=== PATIENT | male | born 1975 | race Asian ===

== ENCOUNTER → 2024-08-10 | Outpatient (BNVA) | payer MEDICAID, SELFPAY | END | disposition home or self-care (01) | PROVIDERS: PCP Nurse Practitioner Family; Referring Provider Nurse Practitioner Family; Visit Provider Nurse Practitioner Family | DX: K08.89 Other specified disorders of teeth and supporting structures (principal); Z12.11 Encounter for screening for malignant neoplasm of colon; Z76.89 Persons encountering health services in other specified circumstances; Z13.220 Encounter for screening for lipoid disorders | CPT/HCPCS: 99213 ==

== ENCOUNTER → 2024-08-17 | Outpatient (BNVA) | payer MEDICAID, SELFPAY | END | disposition home or self-care (01) | PROVIDERS: PCP Nurse Practitioner Family; Referring Provider Nurse Practitioner Family; Visit Provider Nurse Practitioner Family | DX: Z00.01 Encounter for general adult medical examination with abnormal findings (principal); M25.572 Pain in left ankle and joints of left foot; Z13.220 Encounter for screening for lipoid disorders; Z12.11 Encounter for screening for malignant neoplasm of colon; Z11.3 Encounter for screening for infections with a predominantly sexual mode of transmission; Z13.1 Encounter for screening for diabetes mellitus; K08.89 Other specified disorders of teeth and supporting structures; E66.3 Overweight; Z68.29 Body mass index [BMI] 29.0-29.9, adult | CPT/HCPCS: 93005; 99215 ==

== ENCOUNTER → 2024-08-31 | Outpatient (BNVA) | payer MEDICAID, SELFPAY | END | disposition home or self-care (01) | PROVIDERS: PCP Nurse Practitioner Family; Referring Provider Nurse Practitioner Family; Visit Provider Nurse Practitioner Family | DX: Z71.2 Person consulting for explanation of examination or test findings (principal); E78.5 Hyperlipidemia, unspecified; R73.03 Prediabetes ==

== ENCOUNTER 2024-09-15 08:31 | Emergency (ER) | payer MEDICAID, SELFPAY ==
[2024-09-15 08:47] VITALS: PULSE 94; RESP 20; O2SAT 100
[2024-09-15 09:08] VITALS: BP 127/66; PULSE 83; RESP 16; TEMP 36.5; O2SAT 100; BMI 27.0
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
[2024-09-15] MEDS: DIAZEPAM 5 MG TABLET 10 MG PO (09:18)
[2024-09-15] MEDS: HYDROcodone/APAP 5/325 TABLET 1 TAB PO (09:18)
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
[2024-09-15 11:54] LABS: Basophils % (Auto) 0 % (0-2.5); Eosinophils # (Auto) 0.1 Thou/mm3 (0.0-0.5); Eosinophils % (Auto) 1 % (0-10); Hematocrit 42.4 % (41.0-53.0); Hemoglobin 14.2 g/dL (13.5-16.0); Immature Granulocytes % (Auto) 1 % (0-0); Immature Granulocytes Auto 0.08 Thou/mm3 (0.00-0.00); Lymphocytes % (Auto) 8 % (10-50); Mean Corpuscular HGB Conc 33.5 g/dl (31.0-37.0); Mean Corpuscular Hemoglobin 31.5 pg (25.0-35.0); Mean Corpuscular Volume 94 fL (80-100); Monocytes # (Auto) 0.7 Thou/mm3 (0.0-0.8); Monocytes % (Auto) 5 % (0-12); Neutrophils # (Auto) 10.4 Thou/mm3 (1.8-7.7); Neutrophils % (Auto) 85 % (37-80); Nucleated Red Blood Cell % 0 /100 WBC (0); Platelet Count 258 Thou/mm3 (140-440); RDW Standard Deviation 40.9 fL (35.1-43.9); Red Blood Count 4.51 Miln/mm3 (4.50-5.90); White Blood Count 12.2 Thou/mm3 (3.8-10.6)
[2024-09-15 12:22] LABS: Partial Thromboplastin Time 26.3 Seconds (22.0-36.0)
[2024-09-15 12:25] LABS: Alanine Aminotransferase 24 U/L (10-49); Albumin, Serum 4.2 gm/dL (3.5-5.0); Albumin/Globulin Ratio 1.3 (1.2-2.2); Alkaline Phosphatase 60 U/L (46-116); Anion Gap 8 (7-16); Aspartate Amino Transferase 44 U/L (0-34); BUN/Creatinine Ratio 12 Ratio (12-20); Bilirubin,Total 0.8 mg/dL (0.3-1.2); Blood Urea Nitrogen 12 mg/dL (9-23); Calcium 9.3 mg/dL (8.3-10.6); Calcium (Corrected) 9.3 mg/dL (8.5-10.1); Carbon Dioxide 26.5 mMol/L (20.0-31.0); Chloride 104 mMol/L (98-107); Estimated Creatinine Clearance 85.5 mL/min (>60); Globulin 3.2 gm/dL (2.3-3.5); Glucose 93 mg/dL (74-106); Osmolality,Calculated 275 (275-295); Potassium 5.1 mMol/L (3.4-5.1); Sodium 138 mMol/L (136-145); Total Protein 7.4 gm/dL (5.7-8.2); eGFR > 60 See Note
[2024-09-15 12:56] VITALS: BP 123/75; PULSE 88; RESP 16; TEMP 36.5; O2SAT 100
--- NOTE | 2024-09-15 14:16 | PC.NURSE ---
JAQUELIN DECLINED THE PATIENT TRANSFER NURSES STATES THEY DONT HAVE THE SERVICES AVAILABLE
--- NOTE | 2024-09-15 14:24 | PC.NURSE ---
PACKET WAS FAXED TO [facility], TALKED TO CHIDI REGARDING THE TRANSFER SHE STATES SHE HAS 6 OTHER CALLS IN FRONT OF ME AND HANG UP THE PHONE
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
[2024-09-15 15:55] VITALS: BP 117/57; PULSE 87; RESP 16; TEMP 36.9; O2SAT 98
--- NOTE | 2024-09-15 16:08 | PC.NURSE ---
[facility] CALL[facility] TO REQUEST [facility]PORT, PROVIDER LOU GAVE REPORT TO TRANSFER NURSE, THE DOCTORS AT [facility] ARE REVIEWING THE CASE
--- NOTE | 2024-09-15 17:02 | PC.NURSE ---
-PT IS ACCEPTED TO [facility] IN [place] BY DR. GOMEZ. THIS IS A ER:ER TRANSFER AND NUMBER FOR REPORT IS [phone]. IVONNE WAS THE FACILITY REP I SPOKE WITH FOR ACCEPTING INFORMATION.
--- NOTE | 2024-09-15 17:20 | PC.CC ---
ASW arranged transportation from [facility]. Transportation was arranged with [facility] for 2100.
[2024-09-15 18:23] VITALS: BP 110/67; PULSE 80; RESP 16; TEMP 37.3; O2SAT 97
--- NOTE | 2024-09-15 19:54 | PC.NURSE ---
CALL [facility] AND SPOKE TO SINAN PARKER TO WHOM I GAVE REPORT TO.
[2024-09-15 19:55] VITALS: BP 136/77; PULSE 77; RESP 16; TEMP 36.7; O2SAT 99
== END 2024-09-15 19:57 | disposition short-term general hospital (02) ==
PROVIDERS: Nurse Practitioner Family; Emergency Provider Emergency Medicine
DX: S32.041A Stable burst fracture of fourth lumbar vertebra, initial encounter for closed fracture (principal); V47.6XXA Car passenger injured in collision with fixed or stationary object in traffic accident, initial encounter; Y92.410 Unspecified street and highway as the place of occurrence of the external cause
CPT/HCPCS: 36415; 71250; 72131; 74176; 80053; 81001; 85025; 85730; 99285; A9270

== ENCOUNTER → 2024-10-26 | Outpatient (BNVA) | payer MEDICAID, SELFPAY | END | disposition home or self-care (01) | PROVIDERS: PCP Nurse Practitioner Family; Referring Provider Nurse Practitioner Family; Visit Provider Nurse Practitioner Family | DX: S32.001D Stable burst fracture of unspecified lumbar vertebra, subsequent encounter for fracture with routine healing (principal); V89.2XXD Person injured in unspecified motor-vehicle accident, traffic, subsequent encounter | CPT/HCPCS: 99214 ==

== ENCOUNTER → 2024-11-16 | Outpatient (BNVA) | payer MEDICAID, SELFPAY | END | disposition home or self-care (01) | PROVIDERS: PCP Nurse Practitioner Family; Referring Provider Nurse Practitioner Family; Visit Provider Nurse Practitioner Family | DX: S32.001D Stable burst fracture of unspecified lumbar vertebra, subsequent encounter for fracture with routine healing (principal); R73.03 Prediabetes; E78.5 Hyperlipidemia, unspecified; Z01.83 Encounter for blood typing | CPT/HCPCS: 99215 ==

== ENCOUNTER → 2024-12-07 | Outpatient (BNVA) | payer MEDICAID, SELFPAY | END | disposition home or self-care (01) | PROVIDERS: PCP Nurse Practitioner Family; Referring Provider Nurse Practitioner Family; Visit Provider Nurse Practitioner Family | DX: Z71.2 Person consulting for explanation of examination or test findings (principal); E78.5 Hyperlipidemia, unspecified; Z23 Encounter for immunization | CPT/HCPCS: 90471; 90472; 90677; 90715; 99213; J90677 ==

== ENCOUNTER 2024-12-15 09:56 | Emergency (ER) | payer MEDICAID, SELFPAY ==
[2024-12-15 10:06] VITALS: BP 115/77; PULSE 85; RESP 18; TEMP 36.7; O2SAT 98; BMI 23.7
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
[2024-12-15] MEDS: IBUPROFEN TAB 400 MG TABLET 800 MG PO (10:26)
[2024-12-15] MEDS: CYCLObenzaPRINE 5 MG TABLET 10 MG PO (10:26)
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
[2024-12-15 11:26] VITALS: BP 118/78; PULSE 78; RESP 18; TEMP 36.6; O2SAT 97
== END 2024-12-15 11:42 | disposition home or self-care (01) ==
PROVIDERS: Emergency Provider Emergency Medicine
DX: S39.012A Strain of muscle, fascia and tendon of lower back, initial encounter (principal); X58.XXXA Exposure to other specified factors, initial encounter
CPT/HCPCS: 72131; 99284; A9270

== ENCOUNTER → 2024-12-28 | Outpatient (BNVA) | payer MEDICAID, SELFPAY | END | disposition home or self-care (01) | PROVIDERS: PCP Nurse Practitioner Family; Referring Provider Nurse Practitioner Family; Visit Provider Nurse Practitioner Family | DX: S32.001D Stable burst fracture of unspecified lumbar vertebra, subsequent encounter for fracture with routine healing (principal); V89.2XXS Person injured in unspecified motor-vehicle accident, traffic, sequela; Z76.89 Persons encountering health services in other specified circumstances; Z71.2 Person consulting for explanation of examination or test findings; M51.369 Other intervertebral disc degeneration, lumbar region without mention of lumbar back pain or lower extremity pain | CPT/HCPCS: 99213 ==

== ENCOUNTER 2025-01-13 09:30 | Outpatient (RCR) | payer MEDICAID, SELFPAY ==
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
--- NOTE | 2025-01-05 10:38 | PT.ODAYNRPT ---
PT Outpatient Daily Note OP Daily Note Outpatient Physical Therapy Treatment Date: 01/05/25 Visit Reasons: traumatic burst fracture lumbar spine Subjective: Pt had recent CT scan and wants to know the results. He reports low pain in the L/S today Objective: See F/S for therex MT: STM L/S with flexbar x7' Assessment: Low pain in prone and min/moderate TTP of lumbar paraspinals with MT. We used the [employer] jaciel to communicate today. Plan: Continue per POC Length of Time (minutes) of Treatment: 30 Minutes Procedure Charges Therapeutic Exercise 30 minutes: Yes
--- NOTE | 2025-01-13 13:39 | PT.ODS1RPT ---
PT OP Progress/Discharge Note Date of Service: 01/13/25 Progress Note/DC Note Progress Note/Discharge Note: DC Note Patient Information Visit Reasons: traumatic burst fracture lumbar spine Service Continue Service or Discharge: Discharge Discharge Date: 01/13/25 Status Subjective: Pt wants to be done with therapy and do exercises at home. He reports less tenderness of the L/S since starting therapy. We used google translate to communicate today. Objective: See F/S for therex TTP: min to none of L/S Trunk AROM: FB: 10 from floor B rotation: 60% of full Extension: 30% of full MT: STM L/S with flexbar x7' Assessment: Pt attended the eval and 2 Rx sessions and wants to continue at home with HEP. He has less TTP of L/S paraspinals from mod to min to meet that goal. He has about the same trunk ROM since the evaluation. He is independent with HEP to meet that goal. Plan: D/C with HEP Procedure Charges Therapeutic Exercise 30 minutes: Yes
== END 2025-01-24 23:59 | disposition home or self-care (01) ==
LOC: CPTX 09:30
PROVIDERS: PCP Nurse Practitioner Family; Referring Provider Nurse Practitioner Family; Visit Provider Nurse Practitioner Family
DX: M54.50 Low back pain, unspecified (principal); S32.041D Stable burst fracture of fourth lumbar vertebra, subsequent encounter for fracture with routine healing; V89.2XXD Person injured in unspecified motor-vehicle accident, traffic, subsequent encounter
CPT/HCPCS: 97110; 97162

== ENCOUNTER → 2025-05-10 | Outpatient (BNVA) | payer MEDICAID, SELFPAY | END | disposition home or self-care (01) | PROVIDERS: PCP Nurse Practitioner Family; Referring Provider Nurse Practitioner Family; Visit Provider Nurse Practitioner Family | DX: Z09 Encounter for follow-up examination after completed treatment for conditions other than malignant neoplasm (principal); Z28.21 Immunization not carried out because of patient refusal; M51.369 Other intervertebral disc degeneration, lumbar region without mention of lumbar back pain or lower extremity pain | CPT/HCPCS: 99213 ==

== ENCOUNTER → 2025-06-09 | Outpatient (BNVA) | payer MEDICAID, SELFPAY | END | disposition home or self-care (01) | PROVIDERS: PCP Nurse Practitioner Family; Referring Provider Nurse Practitioner Family; Visit Provider Nurse Practitioner Family | DX: E78.5 Hyperlipidemia, unspecified (principal); E66.3 Overweight ==

== ENCOUNTER → 2025-06-21 | Outpatient (BNVA) | payer MEDICAID, SELFPAY | END | disposition home or self-care (01) | PROVIDERS: PCP Nurse Practitioner Family; Referring Provider Nurse Practitioner Family; Visit Provider Nurse Practitioner Family | DX: Z71.2 Person consulting for explanation of examination or test findings (principal); N40.0 Benign prostatic hyperplasia without lower urinary tract symptoms; R35.1 Nocturia; Z71.1 Person with feared health complaint in whom no diagnosis is made; E78.5 Hyperlipidemia, unspecified; Z28.21 Immunization not carried out because of patient refusal | CPT/HCPCS: 99215 ==

== ENCOUNTER → 2025-07-05 | Outpatient (BNVA) | payer MEDICAID, SELFPAY | END | disposition home or self-care (01) | PROVIDERS: PCP Nurse Practitioner Family; Referring Provider Nurse Practitioner Family; Visit Provider Nurse Practitioner Family | DX: Z71.2 Person consulting for explanation of examination or test findings (principal) | CPT/HCPCS: 99213 ==